=== PATIENT | male | born 1955 | race Caucasian/White ===

== ENCOUNTER 2016-06-20 06:56 | Day surgery (SDC) | payer OTHER ==
[2016-06-20] MEDS ORDERED: LACTATED RINGERS 1,000 ML ONE (07:35)
[2016-06-20] MEDS ORDERED: IV START KIT ONE (07:35)
[2016-06-20] MEDS ORDERED: PROPOFOL 20 ML IV ONE ×2 (08:28→08:29)
== END 2016-06-20 09:35 | disposition home or self-care (01) ==
LOC: SDC 06:56
PROVIDERS: ATTEND Family Medicine
PROC: 0DJD8ZZ Inspection of Lower Intestinal Tract, Via Natural or Artificial Opening Endoscopic (ICD-10-PCS; principal; 2016-06-20)
DX: Z12.11 Encounter for screening for malignant neoplasm of colon (principal); Z80.42 Family history of malignant neoplasm of prostate; I48.2 Chronic atrial fibrillation; Z79.82 Long term (current) use of aspirin
CPT/HCPCS: 45378; J7120